=== PATIENT | female | born 1955 ===

== ENCOUNTER 2021-10-18 08:45 | Observation (INO) ==
[~2021-10-18 08:45] MED LIST: Buffered Lidocaine 1% SYRIN 1 ml INTRADERM ONE; Famotidine IV 10 MG/ML 2 ml VIAL (20 mg) IV ONE; Lactated Ringers 1000 ml BAG 1,000 ML IV SCH
[2021-10-18] MEDS ORDERED: ROPIVACAINE 5 MG/ML 30 ML BTL (0.5%) ONE ×2 (08:51→11:57)
[2021-10-18] MEDS ORDERED: fentaNYL 100 mcg/2 ml 50 MCG/ML VIAL ONE (10:23)
[2021-10-18] MEDS ORDERED: Midazolam 2 mg/2 ml VIAL 1 mg/ml 2 ml VIAL (2 mg) ONE ×2 (10:23→12:19)
[2021-10-18] MEDS ORDERED: Famotidine IV 10 MG/ML 2 ml VIAL (20 mg) ONE (11:41)
[2021-10-18] MEDS ORDERED: Clindamycin 900 MG/D5W BAG 900 MG/50 ML BAG IVPB ONE (11:41)
[2021-10-18] MEDS ORDERED: Lidocaine 2% PF 5 ML VIAL ONE ×2 (11:57→13:17)
[2021-10-18] MEDS ORDERED: Acetaminophen IV 1 GM/100ML 0 ML IV ONE (12:07)
[2021-10-18] MEDS ORDERED: Bupivacaine 0.5% SDV PF 30ML VIAL ONE (12:14)
[2021-10-18] MEDS ORDERED: Dexamethasone IV 4 MG/ML VIAL 1 ml VIAL ONE (13:17)
[2021-10-18] MEDS ORDERED: Propofol 10 MG/ML 20 ML BTL ONE (13:17)
[2021-10-18] MEDS ORDERED: Ondansetron 4 mg VIAL 2 MG/ML 2 ml VIAL ONE (13:17)
[2021-10-18] MEDS ORDERED: Phenylephrine IV 10 MG/ML 1 ml VIAL ONE (13:18)
[2021-10-18] MEDS ORDERED: Metoclopramide 5 MG/ML VIAL (10 mg) ONE (14:03)
[2021-10-18] MEDS ORDERED: Glycopyrrolate IV 0.2 MG/ML 1 ML VIAL ONE (14:04)
[2021-10-18] MEDS ORDERED: EPHEDrine (Pressors) 50 MG/ML VIAL ONE (14:10)
[2021-10-18] MEDS ORDERED: Lactulose 30 ml UDC PO PRN (14:21)
[2021-10-18] MEDS ORDERED: Ondansetron ODT 4 mg TAB 4 MG TAB PO PRN (14:21)
[2021-10-18] MEDS ORDERED: Magnesium Hydroxide LIQ 30 ML UDC PO PRN (14:21)
[2021-10-18] MEDS ORDERED: diPHENhydraMINE IV 50 MG/ML 1 ml VIAL (BENADRYL) IV PRN (14:21)
[2021-10-18] MEDS ORDERED: diPHENhydraMINE 25 mg TAB PO PRN (14:21)
[2021-10-18] MEDS ORDERED: Ondansetron 4 mg VIAL 2 MG/ML 2 ml VIAL IV PRN ×2 (14:21→14:47)
[2021-10-18] MEDS ORDERED: Naloxone 0.4 mg VIAL 0.4 mg/ml 1 ml VIAL IV PRN (14:47)
[2021-10-18] MEDS ORDERED: fentaNYL 100 mcg/2 ml 50 MCG/ML VIAL IV PRN (14:47)
[2021-10-18] MEDS: Lactated Ringers 1000 ml BAG 1,000 ML IV SCH ×2 (17:08→17:23)
[2021-10-18] MEDS: Clindamycin 600 MG/D5W BAG 600 MG/50 ML BAG IV SCH (21:38)
[2021-10-18] MEDS: Magnesium Hydroxide LIQ 30 ML UDC PO SCH (21:40)
[2021-10-18] MEDS ORDERED: RIFAXIMIN 550 MG PO SCH (22:00)
[2021-10-19] MEDS: Lactated Ringers 1000 ml BAG 1,000 ML IV SCH (02:22)
[2021-10-19] MEDS: Clindamycin 600 MG/D5W BAG 600 MG/50 ML BAG IV SCH ×2 (05:49→13:55)
[2021-10-19] MEDS: RIFAXIMIN 550 MG PO SCH ×2 (06:01→14:07)
[2021-10-19 06:13] LABS: Hematocrit 36 % (35-47); Hemoglobin 12.3 g/dL (12.0-16.0); Platelet Count 198 10^3/uL (150-450)
[2021-10-19 06:33] LABS: Calcium 8.9 mg/dL (8.6-10.3); Potassium 4.9 mmol/L (3.5-5.0); eGFR CKD-EPI 90.6 (>60)
[2021-10-19] MEDS ORDERED: Pneumococcal Vac 23-Polyvalent IM ONE (09:00)
[2021-10-19] MEDS ORDERED: Vitamin THERAPEUTIC TAB PO SCH (09:00)
[2021-10-19] MEDS: Magnesium Hydroxide LIQ 30 ML UDC PO SCH (09:13)
[2021-10-19 11:43] VITALS: BP 126/77
== END 2021-10-19 14:41 | disposition home or self-care (01) ==
LOC: INTOOBSV 11:02 → AA 11:02 → SSU 17:00
PROVIDERS: ADMIT Orthopaedic Surgery Adult Reconstructive Orthopaedic Surgery; ATTEND Orthopaedic Surgery Adult Reconstructive Orthopaedic Surgery

== ENCOUNTER 2021-11-20 14:38 | Inpatient (IN) ==
[2021-11-20 15:20] LABS: ABS Eosinophils 0.1 10^3/ul (0-0.6); ABS Lymphocytes 1.1 10^3/ul (1.0-4.8); ABS Monocytes 0.6 10^3/ul (0-0.8); ABS Neutrophils 1.5 10^3/ul (1.5-7.7); Eosinophil % 3.7 %; Hematocrit 43 % (35-47); Hemoglobin 14.4 g/dL (12.0-16.0); Lymphocyte % 31.9 %; Mean Corpuscular HGB Conc 33 g/dL (31-36); Mean Corpuscular Hemoglobin 31 pg (27-31); Mean Corpuscular Volume 93 fL (80-97); Mean Platelet Volume 8.1 fL (7.4-10.4); Platelet Count 259 10^3/uL (150-450); Red Blood Count 4.66 10^6 /uL (3.70-4.87); Red Cell Distribution Width 14 % (10-15); White Blood Count 3.3 10^3/uL (3.5-10.8)
[2021-11-20] MEDS ORDERED: Diltiazem IV push/loading dose 5 MG/ML 5 ML vial (25 mg) IV SLOW PU ONE (15:21)
[2021-11-20] MEDS ORDERED: Magnesium Sulfate 2 gm BAG 2 GM/50 ML BAG IVPB ONE (15:21)
[2021-11-20] MEDS ORDERED: Diltiazem (ADVAN VIAL) 100 MG/100 ML ADDV.BAG IV SCH (16:00)
[2021-11-20 16:06] LABS: TSH Ultra Thyroid Stim Horm 1.06 mcIU/mL (0.34-5.60)
[2021-11-20 16:25] LABS: Albumin 3.8 g/dL (3.2-5.2); Albumin/Globulin Ratio 1.8 (1-3); Calcium 8.8 mg/dL (8.6-10.3); Globulin 2.1 g/dL (2-4); Magnesium 1.9 mg/dL (1.9-2.7); Potassium 3.2 mmol/L (3.5-5.0); Total Bilirubin 0.4 mg/dL (0.2-1.0); Total Protein 5.9 g/dL (6.4-8.9)
[2021-11-20] MEDS ORDERED: Potassium Chlor 20 meq TAB.ER PO ONE (16:37)
[2021-11-20 16:47] LABS: High Sensitivity Troponin 1 Hr 22 pg/mL (<15)
[2021-11-20 18:06] LABS: Urine Bacteria Absent (Absent); Urine Red Blood Cell Trace(0-2/hpf) (Absent); Urine Squamous Epithelial Cell Present (Absent); Urine White Blood Cell Trace(0-5/hpf) (Absent)
[2021-11-20] MEDS ORDERED: Lactated Ringers 1000 ml BAG 1,000 ML IV ONE (18:58)
[2021-11-20] MEDS ORDERED: Ondansetron 4 mg VIAL 2 MG/ML 2 ml VIAL IV PRN (19:03)
[2021-11-20 19:09] LABS: Urine Appearance Clear; Urine Bilirubin Negative (Negative); Urine Blood 1+ (Negative); Urine Color Yellow; Urine Glucose Negative (Negative); Urine Ketones Negative (Negative); Urine Nitrite Negative (Negative); Urine Protein Negative (Negative); Urine Specific Gravity 1.009 (1.002-1.030); Urine Urobilinogen Negative (Negative)
[2021-11-20] MEDS ORDERED: Diltiazem IV BAG D5W Premix 125 MG/125 ML BAG IV SCH (20:00)
[2021-11-21 05:14] LABS: ABS Basophils 0.1 10^3/ul (0-0.2); ABS Eosinophils 0.2 10^3/ul (0-0.6); ABS Lymphocytes 1.2 10^3/ul (1.0-4.8); ABS Monocytes 0.5 10^3/ul (0-0.8); ABS Neutrophils 1.2 10^3/ul (1.5-7.7); Eosinophil % 6.2 %; Hematocrit 37 % (35-47); Hemoglobin 12.4 g/dL (12.0-16.0); Lymphocyte % 37.5 %; Mean Corpuscular HGB Conc 34 g/dL (31-36); Mean Corpuscular Hemoglobin 31 pg (27-31); Mean Corpuscular Volume 91 fL (80-97); Mean Platelet Volume 7.8 fL (7.4-10.4); Nucleated Red Blood Cells % 0.2; Platelet Count 237 10^3/uL (150-450); Red Blood Count 4.02 10^6 /uL (3.70-4.87); Red Cell Distribution Width 14 % (10-15); White Blood Count 3.2 10^3/uL (3.5-10.8)
[2021-11-21 05:52] LABS: Calcium 8.4 mg/dL (8.6-10.3); Magnesium 1.9 mg/dL (1.9-2.7); Potassium 3.6 mmol/L (3.5-5.0); eGFR CKD-EPI 97.8 (>60)
[2021-11-21] MEDS: Lactated Ringers 1000 ml BAG 1,000 ML IV SCH ×3 (09:13→16:33)
[2021-11-22 05:53] LABS: ABS Basophils 0.1 10^3/ul (0-0.2); ABS Eosinophils 0.2 10^3/ul (0-0.6); ABS Lymphocytes 1.7 10^3/ul (1.0-4.8); ABS Monocytes 0.7 10^3/ul (0-0.8); ABS Neutrophils 1.3 10^3/ul (1.5-7.7); Eosinophil % 5.7 %; Hematocrit 38 % (35-47); Hemoglobin 12.9 g/dL (12.0-16.0); Lymphocyte % 43.5 %; Mean Corpuscular HGB Conc 34 g/dL (31-36); Mean Corpuscular Hemoglobin 31 pg (27-31); Mean Corpuscular Volume 92 fL (80-97); Mean Platelet Volume 7.9 fL (7.4-10.4); Nucleated Red Blood Cells % 0.1; Platelet Count 234 10^3/uL (150-450); Red Blood Count 4.13 10^6 /uL (3.70-4.87); Red Cell Distribution Width 14 % (10-15)
[2021-11-22 06:33] LABS: Calcium 8.9 mg/dL (8.6-10.3); eGFR CKD-EPI 97.8 (>60)
[2021-11-22 12:33] VITALS: BP 116/61
[2021-11-23 19:05] LABS: Anaplasma phagocytophilum Negative (Negative); B. miyamotoi PCR, B Negative (Negative); Babesia divergens/MO-1 Negative (Negative); Babesia ducani Negative (Negative); Ehrlichia chaffeensis Negative (Negative); Ehrlichia ewingii/canis Negative (Negative); Ehrlichia muris eauclairensis Negative (Negative)
== END 2021-11-22 15:20 | disposition home or self-care (01) | DRG 309 ==
LOC: MEDTELE 14:38 → ED 14:38 → MEDTELE 23:04 → SUATTDRO 23:05
PROVIDERS: ADMIT Internal Medicine; ATTEND Internal Medicine